=== PATIENT | female | born 1945 | race Caucasian/White ===

== ENCOUNTER 2017-02-03 22:34 | Inpatient (IN) | payer OTHER, MEDICARE ==
[~2017-02-03] VITALS: Ht 154.9 cm; Wt 110.2 kg
[~2017-02-03 22:34] MED LIST: 1-ME1LIQ PO; ASPI81 PO; ATOR40TA49 PO; QUIN40TA10 PO
[2017-02-03 22:40] VITALS: BP 156/83; PULSE 77; RESP 18; TEMP 98.2; O2SAT 96
[2017-02-03] MEDS ORDERED: CARV6.252 PO (23:18)
[2017-02-03] MEDS ORDERED: MULT1TAB41 PO (23:25)
[2017-02-03] MEDS ORDERED: AMLO5TAB2 PO (23:25)
[2017-02-03] MEDS ORDERED: OMEGCAP PO (23:25)
[2017-02-03] MEDS ORDERED: ASPI-183 PO (23:25)
[2017-02-03] MEDS ORDERED: ATOR40TA16 PO (23:25)
[2017-02-03] MEDS ORDERED: QUIN5TAB6 PO (23:25)
[2017-02-03] MEDS ORDERED: CALC600C3 PO (23:25)
[2017-02-03] MEDS ORDERED: MAGN250T11 PO (23:27)
[2017-02-03] MEDS ORDERED: CYAN1TAB24 PO (23:27)
[2017-02-03] MEDS ORDERED: D 50CAP2 PO (23:27)
--- NOTE | 2017-02-03 23:28 | PD ---
HPI Chief Complaint: Fall Time Seen by Provider: 23:26 Travel History International Travel<30 days: No Contact w/Intl Traveler<30days: No Traveled to known affect area: No History of Present Illness HPI The patient is a 71-year-old right-hand dominant female that fell with left wrist extended at 9:30 PM tonight. She complains of pain in the left wrist along with swelling in the left wrist. She denies any other injury. She states she fractured her same wrist years ago. PFSH Past Medical History Atrial Fibrillation: Yes Cardiac Catheterization: Yes (2009) Cardiovascular Problems: Yes (pacemaker) High Cholesterol: Yes Diminished Hearing: No Hypertension: Yes Immunizations Current: Yes Tetanus Vaccination: Never Vaccinated Influenza Vaccination: No ?: Not Menopausal: Yes Past Surgical History Hysterectomy: Yes Tonsillectomy: Yes Other Surgery: Yes (PACEMAKER) Social History Alcohol Use: No Tobacco Use: No Substance Use: No Allergies-Medications (Allergen,Severity, Reaction): Coded Allergies: No Known Allergies (Verified Allergy, Unknown, 02/04/17) Reported Meds & Prescriptions Reported Meds & Active Scripts Active Reported Magnesium Oxide 250 Mg Tab 250 Mg PO DAILY D3 Maximum Strength (Cholecalciferol) 5,000 Unit Cap 1,000 Units PO DAILY B12 (Cyanocobalamin) 1,000 Mcg Tab 1 Tab PO DAILY Martha-3 Fish Oil/Vitamin (Fish Oil-Cholecalciferol) 1,000-1,000 Mg Cap 1 Cap PO DAILY Sentry Senior (Multiple Vitamins W/ Minerals) 500 Mcg-300 Mcg-250 Mcg Tab 1 Tab PO DAILY Calcium 600 + Vit D 400 Softgl (Calcium Carbonate/Vitamin D3) 600 Mg-400 Capsule 1,200 Mg PO DAILY Aspirin 325 Mg Tab 325 Mg PO DAILY Quinapril (Quinapril HCl) 5 Mg Tab 40 Mg PO DAILY Atorvastatin (Atorvastatin Calcium) 40 Mg Tab 40 Mg PO HS Amlodipine (Amlodipine Besylate) 5 Mg Tab 5 Mg PO DAILY Carvedilol 6.25 Mg Tab 6.25 Mg PO BID Review of Systems Except as stated in HPI: all other systems reviewed are Neg Physical Exam Narrative GENERAL: The patient is alert, oriented 3 in moderate apparent distress with her left wrist discomfort. Her vital signs show blood pressure 156/83 but are otherwise normal. SKIN: Focused skin assessment warm/dry. HEAD: Atraumatic. Normocephalic. EYES: Pupils equal and round. No scleral icterus. No injection or drainage. ENT: No nasal bleeding or discharge. Mucous membranes pink and moist. NECK: Trachea midline. No JVD. CARDIOVASCULAR: Regular rate and rhythm. No murmur appreciated. RESPIRATORY: No accessory muscle use. Clear to auscultation. Breath sounds equal bilaterally. GASTROINTESTINAL: Abdomen soft, non-tender, nondistended. Hepatic and splenic margins not palpable. MUSCULOSKELETAL:. No clubbing. No cyanosis. There is swelling and slight radial deformity of the left wrist. Good capillary refill and pinprick is present. She moves all her fingers normally. NEUROLOGICAL: Awake and alert. No obvious cranial nerve deficits. Motor grossly within normal limits. Normal speech. PSYCHIATRIC: Appropriate mood and affect; insight and judgment normal. Data Data Last Documented VS Vital Signs Date Time Temp Pulse Resp B/P (MAP) Pulse Ox O2 Delivery O2 Flow Rate FiO2 02/03/17 23:02 16 96 Room Air 02/03/17 22:40 98.2 77 156/83 (107) Orders Orders Wrist, Complete ([place]) (02/03/17 23:28) Splint Or Brace Apply/Monitor (02/04/17 00:26) Complete Blood Count With Diff (02/04/17 00:28) Basic Metabolic Panel (Bmp) (02/04/17 00:28) Prothrombin Time / Inr (Pt) (02/04/17 00:28) Act Partial Throm Time (Ptt) (02/04/17 00:28) Urinalysis - C+S If Indicated (02/04/17 00:28) Chest, Pa & Lat (02/04/17 00:28) Admit To Inpatient (02/04/17 ) Vital Signs (Adult) Q4H (02/04/17 00:26) Activity Oob With Assistance (02/04/17 00:26) Bedside Glucose SALENA.CSUGAR (02/04/17 00:26) Diet Npo (02/04/17 Breakfast) Sodium Chlor 0.45% 1000 Ml Inj (1/2 Ns 1 (02/04/17 00:26) Sodium Chloride 0.9% Flush (Ns Flush) (02/04/17 00:30) Sodium Chloride 0.9% Flush (Ns Flush) (02/04/17 09:00) Acetaminophen (Tylenol) (02/04/17 00:30) Ondansetron Inj (Zofran Inj) (02/04/17 00:30) Basic Metabolic Panel (Bmp) (02/04/17 06:00) Complete Blood Count With Diff (02/04/17 06:00) Scd Bilateral/Knee High SALENA.BID (02/04/17 00:26) Naloxone Inj (Narcan Inj) (02/04/17 00:30) Docusate Sodium-Senna (Lilia-Colace) (02/04/17 09:00) Magnesium Hydroxide Liq (Milk Of Magnesi (02/04/17 00:30) Sennosides (Senokot) (02/04/17 00:30) Bisacodyl Supp (Dulcolax Supp) (02/04/17 00:30) Lactulose Liq (Lactulose Liq) (02/04/17 00:30) Inpatient Certification (02/04/17 ) Morphine Inj (Morphine Inj) (02/04/17 00:30) Coag Profile (02/04/17 06:00) Morphine Inj (Morphine Inj) (02/04/17 00:30) Ondansetron Inj (Zofran Inj) (02/04/17 00:30) Sodium Chlor 0.9% 1000 Ml Inj (Ns 1000 M (02/04/17 00:29) Electrocardiogram (02/04/17 00:29) Admit Order (Ed Use Only) (02/04/17 00:31) MDM Medical Decision Making Medical Screen Exam Complete: Yes Emergency Medical Condition: Yes Medical Record Reviewed: Yes Interpretation(s) X-rays show a comminuted fracture of the distal radius with an extension into the joint. Differential Diagnosis Fracture wrist, right wrist sprain, contusion wrist Narrative Course The patient has a comminuted fracture of the distal radius. The patient will be admitted to the [facility] service with consult to Dr. Lange in the morning. I discussed the patient with Dr. Kan. Physician Communication Physician Communication I discussed the patient with Dr. Kan. He told me to admit the patient to the [facility] service, transfer the patient to [facility] and consult Dr. Lange in the morning. The patient will be admitted to Dr. Roman of the [facility] service. I discussed the patient with Dr. Roman. Diagnosis Primary Impression: Fracture of left wrist Marcial Brown MD Feb 03, 2017 23:28
--- NOTE | 2017-02-04 00:06 | RADRPT ---
EXAM DATE/TIME: 02/03/2017 23:37 [facility] COMPARISON: No previous studies available for comparison. INDICATIONS : Left wrist pain after fall. MEDICAL HISTORY : Prior fracture to left wrist. SURGICAL HISTORY : None. ENCOUNTER: Initial ACUITY: 1 day PAIN SCORE: 8/10 LOCATION: Left wrist. FINDINGS: Acute, severely comminuted and impacted fracture seen of the distal left radius. Fracture has about 5 mm of dorsal displacement and mild dorsal angulation deformity. There is focal oblique coronal fract ure extending into the articular surface but without significant step-off or incongruity noted. There is a minimally displaced fracture of the base of the ulnar styloid. The bones appear intact. Mild radiocarpal osteoarthritis noted. There is moderate osteoarthritis of t he triscaphe and first carpometacarpal joints. CONCLUSION: 1. Comminuted, impacted intra-articular fracture of the distal left radius. 2. Minimally displaced ulnar styloid fracture. 3. Radial sided osteoarthritis of the carpus. Carpal bones are intact. Jamar Saleh MD on February 04, 2017 at 0:02 Board Certified Radiologist. This report was verified electronically.
[2017-02-04] MEDS ORDERED: SODIUM CHLOR 0.45% 1000 ML INJ 1,000 ML IV SCH (00:26)
[2017-02-04] MEDS ORDERED: SODIUM CHLOR 0.9% 1000 ML INJ 1,000 ML IV SCH (00:29)
[2017-02-04 00:30] VITALS: BP 148/83; PULSE 77; RESP 18; O2SAT 97
[2017-02-04] MEDS ORDERED: NALOXONE HCL 0.4 MG/ML AMP IV PUSH PRN (00:30)
[2017-02-04] MEDS ORDERED: BISACODYL 10 MG SUPP RECTAL PRN (00:30)
[2017-02-04] MEDS ORDERED: ONDANSETRON HCL 4 MG/2 ML VIAL IVP PRN (00:30)
[2017-02-04] MEDS ORDERED: MORPHINE SULFATE 4 MG/ML INJ IV PUSH ONE (00:30)
[2017-02-04] MEDS ORDERED: ONDANSETRON HCL 4 MG/2 ML VIAL IVP ONE (00:30)
[2017-02-04] MEDS ORDERED: ACETAMINOPHEN 325 MG TAB PO PRN (00:30)
[2017-02-04] MEDS ORDERED: MORPHINE SULFATE 2 MG/ML INJ IV PUSH PRN (00:30)
[2017-02-04] MEDS ORDERED: MAGNESIUM HYDROXIDE SUSP 30 ML CUP PO PRN (00:30)
[2017-02-04] MEDS ORDERED: SODIUM CHLORIDE 0.9% FLUSH 10 ML FLUSH IV FLUSH PRN (00:30)
[2017-02-04] MEDS ORDERED: SENNOSIDES 8.6 MG TAB PO PRN (00:30)
[2017-02-04] MEDS ORDERED: LACTULOSE SYRUP 20 GM/30 ML CUP PO PRN (00:30)
--- NOTE | 2017-02-04 01:33 | RADRPT ---
EXAM DATE/TIME: 02/04/2017 00:55 [facility] COMPARISON: No previous studies available for comparison. INDICATIONS : Chest pain after fall. MEDICAL HISTORY : None. SURGICAL HISTORY : Pacemaker. ENCOUNTER: Initial ACUITY: 1 day PAIN SCORE: 6/10 LOCATION: Bilateral chest FINDINGS: Mild, diffuse interstitial opacities are seen, probably mostly chronic. A slightly more conspicuous a carleen of focal consolidation is seen in the right midlung and early or mild acute pneumonia possible. N o pleural effusion. No pneumothorax. Heart size within normal limits. Thoracic aorta is tortuous. There is a cardiac pacer. CONCLUSION: 1. Early or mild right mid lung pneumonia suspected in the proper clinical setting. 2. Mild, diffuse and most likely chronic interstitial opacities of both lungs. 3. Normal heart size. Cardiac pacer present. Jamar Saleh MD on February 04, 2017 at 1:30 Board Certified Radiologist. This report was verified electronically.
[2017-02-04 02:48] LABS: AUTOMATED NEUTROPHIL # 6.6 TH/MM3 (1.8-7.7); BASOPHIL % 0.2 % (0.0-2.0); EOSINOPHIL # 0.1 TH/MM3 (0-0.4); EOSINOPHIL % 1.5 % (0.0-4.0); HEMATOCRIT 41.3 % (35.0-46.0); HEMO FLAGS DIFF FINAL; LYMPHOCYTE # 2.1 TH/MM3 (1.0-4.8); MEAN CELL VOLUME 90.6 FL (80.0-100.0); MEAN CORPUSCULAR HEMOGLOBIN 28.5 PG (27.0-34.0); MEAN CORPUSCULAR HGB CONC 31.5 % (32.0-36.0); MONO % 5.8 % (0.0-8.0); NEUT % 70.5 % (16.0-70.0); PLATELET COUNT 226 TH/MM3 (150-450); RED BLOOD COUNT 4.57 MIL/MM3 (4.00-5.30); RED CELL DISTRIBUTION WIDTH 12.7 % (11.6-17.2); WHITE BLOOD COUNT 9.3 TH/MM3 (4.0-11.0)
[2017-02-04 02:59] LABS: BICARBONATE 25.3 MEQ/L (21.0-32.0)
[2017-02-04 03:00] VITALS: BP 142/80; PULSE 70; RESP 18; O2SAT 97
[2017-02-04 03:00] LABS: PROTHROMBIN TIME - PATIENT 10.7 SEC (9.8-11.6)
[2017-02-04 03:01] LABS: POTASSIUM 4.8 MEQ/L (3.5-5.1)
[2017-02-04 04:35] VITALS: BP 144/82; PULSE 70; RESP 18; O2SAT 97
[2017-02-04] MEDS ORDERED: SODIUM CHLORID 0.9% 500 ML IV PRN (05:30)
[2017-02-04] MEDS ORDERED: CHLORHEXIDINE GLUCONATE 2 % 1 PACK (2 CLOTHS) TOPICAL PRN (05:30)
[2017-02-04] MEDS ORDERED: POVIDONE IODINE 5% (ANTISEPSIS KIT) 4 APPLICATIONS EACH NARE PRN (05:30)
[2017-02-04] MEDS ORDERED: LACTATED RINGER'S 1000 ML IV PRN (05:30)
[2017-02-04] MEDS ORDERED: METOPROLOL TARTRATE 25 MG TAB PO PRN (05:30)
[2017-02-04 05:36] VITALS: BP 114/43; PULSE 60; RESP 17; TEMP 97.2; O2SAT 96
[2017-02-04] MEDS ORDERED: HYDR-3288 PO (06:54)
--- NOTE | 2017-02-04 06:56 | PD.ORT.PN ---
Subjective Subjective Remarks Inez was at home when she tripped over her own shoe and landed on hard tile floor. She had significant pain and deformity to left wrist. She went to emergency room for x-rays and was diagnosed with a left distal radius fracture. Also complains of left rib pain. No other associated injuries or complaints Objective Vitals Vital Signs Date Time Temp Pulse Resp B/P (MAP) Pulse Ox O2 Delivery O2 Flow Rate FiO2 02/04/17 04:36 70 18 97 02/04/17 04:35 70 18 144/82 (102) 97 Room Air 02/04/17 03:00 70 18 142/80 (100) 97 Room Air 02/04/17 00:30 77 18 148/83 (104) 97 Room Air 02/03/17 23:02 16 96 Room Air 02/03/17 22:40 98.2 77 18 156/83 (107) 96 I/O 02/03/17 02/03/17 02/03/17 02/04/17 02/04/17 02/04/17 07:00 15:00 23:00 07:00 15:00 23:00 Intake Total 1000 ml Balance 1000 ml Intake IV Total 1000 ml Result Diagram: 02/04/17 0235 02/04/17 0235 Other Results Laboratory Tests Test 02/04/17 02:35 Prothromb Time International Ratio 1.0 RATIO Prothrombin Time 10.7 SEC (9.8-11.6) Imaging Last 24 hours Impressions Chest X-Ray 02/04/17 0028 Signed Impressions: Service Date/Time: Saturday, February 04, 2017 00:55 - CONCLUSION: 1. Early or mild right mid lung pneumonia suspected in the proper clinical setting. 2. Mild, diffuse and most likely chronic interstitial opacities of both lungs. 3. Normal heart size. Cardiac pacer present. Jamar Saleh MD Wrist X-Ray 02/03/17 [id number] Signed Impressions: Service Date/Time: Friday, February 03, 2017 23:37 - CONCLUSION: 1. Comminuted, impacted intra-articular fracture of the distal left radius. 2. Minimally displaced ulnar styloid fracture. 3. Radial sided osteoarthritis of the carpus. Carpal bones are intact. Jamar Saleh MD Objective Remarks Left upper extremity. No pain with shoulder range of motion. She is in a sugar tong splint is well-padded. Distally she has intact sensation of her radius ulnar median nerve distractions with good capillary refills. She can extend her fingers and she can flex her fingers. Right upper extremity: Full range of motion neurovascularly intact Assessment & Plan Assessment and Plan Left interarticular distal radius fracture. Fracture alignment is borderline for surgical versus nonsurgical treatment. We will obtain stat x-rays post splinting to evaluate alignment. She will continue to remain nothing by mouth at this time. If the fracture continues to maintain position or is slightly worsened we will proceed with surgery this morning. Consents are on chart - we will call and confirm surgical versus conservative measures after x-rays were performed Baldemar Stringer Jr. Feb 04, 2017 06:56
[2017-02-04] MEDS ORDERED: ACETAMINOPHEN/HYDROcodone 325 MG/7.5 MG TAB PO PRN ×2 (07:00→10:15)
[2017-02-04 07:37] VITALS: BP 104/41; PULSE 60; RESP 18; TEMP 97.1; O2SAT 95
--- NOTE | 2017-02-04 07:58 | MB ---
cc: SANTO ESQUIVEL DATE OF CONSULTATION 02/03/2017 REASON FOR CONSULTATION Left distal radius fracture. HISTORY Inez is a 71-year-old female who had a fall last night at approximately 9:30. She landed on her left side. She landed on an outstretched left arm. She had immediate left wrist pain. She presented to [facility] emergency room where x-rays revealed a mildly displaced left distal radius fracture. She is currently awake and alert on the orthopedic floor. Her only complaint is her left wrist. She denies any dizziness, syncope or loss of consciousness. She is left-hand dominant. Pain is worse with movement and is improved with rest. She is placed in a splint in the emergency department. PAST MEDICAL HISTORY ILLNESSES Atrial fibrillation. SURGERIES 1. Hysterectomy 2. Tonsillectomy 3. Pacemaker placement ALLERGIES None MEDICATIONS Please see EMR for this inpatient medications. This includes: 1. Magnesium 2. Vitamin D 3. Vitamin B12 4. Calcium 5. Aspirin 6. Quinapril 7. Atorvastatin 8. Amlodipine 9. Carvedilol SOCIAL HISTORY The patient denies alcohol, tobacco or drug use. She lives independently in [place]. REVIEW OF SYSTEMS The patient denies headache, visual changes, neck pain, chest pain, shortness of breath, abdominal pain, nausea, vomiting or recent weight loss, numbness or tingling of extremities. She complains of left wrist pain. Pain is worse with movement. Pain is improved with rest. PHYSICAL EXAMINATION The patient is a pleasant 71-year female. She is in no acute distress. She is awake and alert. She is a mildly overweight. VITAL SIGNS: Temperature 97.2, pulse 60, respiration 17, blood pressure 114/41, O2 sat 96% on room air. HEAD: The patient is normocephalic. EYES: Pupils are equal. NECK: Soft and nontender. Trachea is midline. ABDOMEN: Soft, nontender, nondistended. EXTREMITIES: Examination of the left arm reveals no tenderness around her shoulder or elbow. She is diffusely tender around the wrist. She has mild swelling present. She has good cap refill in her fingers. Sensation is intact in all fingers. Examination of right arm reveals no pain with shoulder, elbow or wrist motion. She has intact sensation in all fingers. She has good cap refill in all fingers. Skin is intact. Radial pulse is palpable. Examination of the bilateral lower extremities reveals no pain with hip, knee or ankle motion. Skin is intact to both feet. Dorsalis pedis pulse is palpable. Skin is intact. X-RAYS X-rays of the left wrist were reviewed. X-rays reveal a mildly displaced, mildly angulated left distal radius fracture. There is mild shortening. The articular surface has approximately 10 degrees of dorsal tilt. IMPRESSION 1. Mildly displaced left distal radius fracture. 2. Atrial fibrillation PLAN Treatment option were discussed with the patient. At this point, options were discussed including surgical and nonsurgical options. If fracture stays in its current alignment, she would likely have relatively good function. If the fracture displaces further, she will likely benefit from surgical intervention. At this point, I will reorder x-rays this morning to see if the alignment has change in all. If there has been any displacement for further angulation of the fracture, then I would recommend surgical open reduction internal fixation. I will follow up with the patient once x-rays have been completed. All questions were answered. The patient is in agreement with this plan. A mid-level provider in my office, nurse practitioner or PA, may see this patient on a follow-up basis and continue to implement the objective of this plan including: Starting or adjusting medications, injections of muscle, tendon, bursa or joints, cast application, orthotic or brace application, physical therapy, further radiographic studies including x-ray, MRI, CT, ultrasounds or bone scan, vascular studies, neurologic studies, or other specialist consultations, and proceeding with surgical management as appropriate. MD PROMISE Recinos/MARIA ELENA /7:23 AM /7:52 AM
--- NOTE | 2017-02-04 08:03 | RADRPT ---
EXAM DATE/TIME: 02/04/2017 07:05 [facility] COMPARISON: WRIST LEFT COMPLETE ([id number]), February 03, 2017, 23:37. INDICATIONS : Evaluate fracture. Post reduction. MEDICAL HISTORY : None. SURGICAL HISTORY : Pacemaker. ENCOUNTER: Subsequent ACUITY: 1 day PAIN SCORE: 5/10 LOCATION: Left writst. FINDINGS: Interval casting and reduction of comminuted impacted intra-articular distal left radial fracture. Th ere is continued impaction with quarter shaft length dorsal displacement of the distal fragment altho ugh no significant cortical step-off is noted along the articular surface. Ulnar styloid fracture is less apparent. No additional new bony fractures are identified. CONCLUSION: 1. Status post reduction and casting of comminuted impacted intra-articular distal left radial fractu re, as above. Huseyin Finn MD on February 04, 2017 at 7:58 Board Certified Radiologist. This report was verified electronically.
[2017-02-04] MEDS ORDERED: ACETAMINOPHEN 1000 MG/100 ML 100 ML IV ONE (08:43)
[2017-02-04] MEDS ORDERED: VANCOMYCIN HCL 1000 MG VIAL ONE (08:48)
[2017-02-04] MEDS ORDERED: BUPIVACAINE/EPINEPHRINE 0.25% PF 10 ML VIAL ONE (08:48)
[2017-02-04] MEDS ORDERED: GENTAMICIN SULFATE 80 MG/2 ML VIAL ONE (08:48)
[2017-02-04] MEDS ORDERED: SODIUM CHLOR 0.9% 250 ML INJ 250 ML ONE (08:48)
[2017-02-04] MEDS ORDERED: DOCUSATE SODIUM 50 MG/SENNA 8.6 MG TAB PO SCH (09:00)
[2017-02-04] MEDS ORDERED: SODIUM CHLORIDE 0.9% FLUSH 10 ML FLUSH IV FLUSH SCH (09:00)
[2017-02-04] MEDS ORDERED: ceFAZolin 2 GM PREMIX 50 ML ONE (09:02)
--- NOTE | 2017-02-04 09:04 | EKG ---
Date Performed: 02/04/2017 Time Performed: 00:53:39 PTAGE: 71 years EKG: ELECTRONIC VENTRICULAR PACEMAKER ABNORMAL RHYTHM ECG INTERPRETATION BASED ON A DEFAULT AGE OF 40 YEARS PREVIOUS TRACING : 05/07/2010 04.55 DOCTOR: Tejas Cisneros Interpretating Date/Time 02/04/2017 09:04:19
--- NOTE | 2017-02-04 10:08 | PD.OP ---
cc: Salvador Newman MD Operative Report Date of Surgery: Feb 04, 2017 Preoperative Diagnosis: Left distal radius intra-articular fracture Postoperative Diagnosis: Procedure: Open reduction internal fixation left distal radius Anesthesia: Gen. Surgeon: Salvador Newman [employer] Instructor(s): CHIRAG Hernandez PA-C The surgical procedure was assisted by my physician surgical services assistant. My P.A. presence was necessary throughout this case for the manipulation and positioning of the surgical extremity. My P.A. was assisting me throughout the duration of this procedure. The skill set of a physician surgical services assistant was medically necessary to complete this procedure. During the surgical case the operating room surgical technician was working at the back table and the physician surgical services assistant was directly assisting me. Operation and Findings: Patient was seen and evaluated preoperatively and found to have a displaced intra-articular left distal radius fracture. Informed consent was obtained after detailed discussion of risk and benefits including bleeding, infection, injury to arteries, nerves, and blood vessels, weakness and numbness of hand, and tendon rupture. Informed consent was obtained. Patient received IV antibiotics prior to incision. Timeout procedure was performed. Operative extremity was prepped with alcohol followed by Hibiclens and draped usual sterile fashion. A standard volar approach to the distal radius was utilized. A 3 inch incision was made over the FCR tendon. Tendon sheath was opened. Pronator quadratus was elevated up. The fracture site was now visualized. The fracture did have intra-articular extension. Traction was applied. The articular surface was reduced. Fracture fragments were manipulated to achieve excellent reduction. K wires were used to hold provisional fixation. Fluoroscopy confirmed appropriate alignment of fracture. An ITS variable angle distal radius plate was selected. Plate was provisionally fixed to bone with K wires. 2.7 and 2.4 cortical screws were used to compress plate to bone. Fluoroscopy confirmed appropriate alignment of fracture with well-placed hardware. Multiple 2.4 locking screws were now placed distally. Screws were predrilled and measured for appropriate length. 2 additional screws were placed into the shaft. K wires were removed. Final fluoroscopy revealed excellent of fracture with well- placed hardware. The wound was thoroughly irrigated with sterile saline. Subcutaneous tissue was closed with 3-0 Vicryl and skin was closed with 3-0 nylon. Sterile dressings were applied with Xeroform, 4 x 4, soft roll, and a well padded volar splint. Patient was awakened and transferred to recovery room in stable condition Salvador Newman MD Feb 04, 2017 10:08
[2017-02-04] MEDS ORDERED: MORPHINE SULFATE 4 MG/ML INJ IV PUSH PRN (10:15)
[2017-02-04] MEDS ORDERED: *ONDANSETRON 4 MG VIAL PERIprocedural Use ONLY ONE (10:43)
--- NOTE | 2017-02-04 11:10 | HHI.HP ---
[facility] Lisa Willis Do, MD Admission Diagnosis comminuted fracture distal radius Diagnoses: Chief Complaint: Fall and left arm pain Travel History International Travel<30 Days: No Contact w/Intl Traveler <30 Da: No Traveled to Known Affected Are: No History of Present Illness This is a 71-year-old female with past medical history of hypertension and hyperlipidemia who fell last night. Patient stated that she actually tripped over a shoe and fell on her left outstretched arm. She denies any symptoms of chest pain, lightheadedness/dizziness, shortness of breathing during this episode. In the emergency department she was found to have a mildly displaced left distal radius fracture. Patient seen in the PACU after surgery. She had a open reduction internal fixation left distal radius. All other review of system reviewed and negative. Past Family Social History Past Medical History Hypertension Hyperlipidemia. Past Surgical History 1. Hysterectomy 2. Tonsillectomy 3. Pacemaker placement Reported Medications [place] (Hydrocodone-Acetaminophen) 7.5-325 mg Tab 1 Tab PO Q3HR PRN Magnesium Oxide 250 Mg Tab 250 Mg PO DAILY D3 Maximum Strength (Cholecalciferol) 5,000 Unit Cap 1,000 Units PO DAILY B12 (Cyanocobalamin) 1,000 Mcg Tab 1 Tab PO DAILY [place]-3 Fish Oil/Vitamin (Fish Oil-Cholecalciferol) 1,000-1,000 Mg Cap 1 Cap PO DAILY [place] [employer] (Multiple Vitamins W/ Minerals) 500 Mcg-300 Mcg-250 Mcg Tab 1 Tab PO DAILY Calcium 600 + Vit D 400 Softgl (Calcium Carbonate/Vitamin D3) 600 Mg-400 Capsule 1,200 Mg PO DAILY Aspirin 325 Mg Tab 325 Mg PO DAILY Quinapril (Quinapril HCl) 5 Mg Tab 40 Mg PO DAILY Atorvastatin (Atorvastatin Calcium) 40 Mg Tab 40 Mg PO HS Amlodipine (Amlodipine Besylate) 5 Mg Tab 5 Mg PO DAILY Carvedilol 6.25 Mg Tab 6.25 Mg PO BID Allergies: Coded Allergies: No Known Allergies (Verified Allergy, Unknown, 02/04/17) Active Ordered Medications Current Medications Sodium Chloride 1,000 ml @ 75 mls/hr [id number] IV ; Start 02/04/17 at 00:26 Sodium Chloride (NS Flush) 2 ml UNSCH PRN IV FLUSH FLUSH AFTER USING IV ACCESS ; Start 02/04/17 at 00:30 Sodium Chloride (NS Flush) 2 ml BID IV FLUSH ; Start 02/04/17 at 09:00 Acetaminophen (Tylenol) 650 mg Q4H PRN PO TEMP > 100.4; Start 02/04/17 at 00: 30 Ondansetron HCl (Zofran Inj) 4 mg Q6H PRN IVP NAUSEA OR VOMITING; Start at 00:30 Naloxone HCl (Narcan Inj) 0.4 mg UNSCH PRN IV PUSH SEE LABEL COMMENTS; Start 02/04/17 at 00:30 Senna/Docusate Sodium (Lilia-Colace) 1 tab BID PO ; Start 02/04/17 at 09:00 Magnesium Hydroxide (Milk Of Magnesia Liq) 30 ml Q12H PRN PO Mild constipation ; Start 02/04/17 at 00:30 Sennosides (Senokot) 17.2 mg Q12H PRN PO Moderate constipation; Start at 00:30 Bisacodyl (Dulcolax Supp) 10 mg DAILY PRN RECTAL SEVERE CONSITIPATION; Start 02/04/17 at 00:30 Lactulose (Lactulose Liq) 30 ml DAILY PRN PO SEVERE CONSITIPATION; Start 02/04 at 00:30 Morphine Sulfate (Morphine Inj) 2 mg Q4H PRN IV PUSH pain 6-10; Start at 00:30 Morphine Sulfate (Morphine Inj) 4 mg ONCE ONCE IV PUSH Last administered on 02:48; Start 02/04/17 at 00:30; Stop 02/04/17 at 00:33; Status DC Ondansetron HCl (Zofran Inj) 4 mg ONCE ONCE IVP Last administered on 02:48; Start 02/04/17 at 00:30; Stop 02/04/17 at 00:33; Status DC Sodium Chloride 1,000 ml @ 1,000 mls/hr Q1H IV Last administered on 02:49; Start 02/04/17 at 00:29; Stop 02/04/17 at 01:28; Status DC Lactated Ringer's 1,000 ml @ 30 mls/hr Q24H PRN IV SEE LABEL COMMENTS; Start 02/04/17 at 05:30; Stop 02/07/17 at 05:29 Sodium Chloride 500 ml @ 30 mls/hr [id number] PRN IV SEE LABEL COMMENTS; Start at 05:30; Stop 02/07/17 at 05:29 Metoprolol Tartrate (Lopressor) 25 mg [employer] PRN PO SEE LABEL COMMENTS Last administered on 02/04/17 08:10; Start 02/04/17 at 05:30; Stop 02/07/17 at 05 :29 Povidone Iodine (Betadine 5% Antisepsis Kit) 1 applic [employer] PRN EACH NARE SEE LABEL COMMENTS; Start 02/04/17 at 05:30; Stop 02/07/17 at 05:29 Chlorhexidine Gluconate (Chlorhexidine 2% Cloth) 3 pack [employer] PRN TOPICAL SEE LABEL COMMENTS; Start 02/04/17 at 05:30; Stop 02/07/17 at 05:29 Acetaminophen/ Hydrocodone Bitart ([place] 7.5-325 Mg) 1 tab Q3H PRN PO pain 3< 10; Start 02/04/17 at 07:00 Acetaminophen 100 ml @ As Directed STK-MED ONCE IV ; Start 02/04/17 at 08:43; Stop 02/04/17 at 08:44; Status DC Bupivacaine HCl/ Epinephrine Bitart (Sensorcaine-Epinephrine Pf 0.25% Inj) 20 ml STK-MED ONCE .ROUTE Last administered on 02/04/17 09:30; Start 02/04/17 at 08:48; Stop 02/04/17 at 08:49; Status DC Vancomycin HCl (Vancomycin Inj) 1,000 mg STK-MED ONCE .ROUTE Last administered on 02/04/17 09:23; Start 02/04/17 at 08:48; Stop 02/04/17 at 08:49; Status DC Gentamicin Sulfate (Gentamicin Inj) 240 mg STK-MED ONCE .ROUTE Last administered on 02/04/17 09:30; Start 02/04/17 at 08:48; Stop 02/04/17 at 08 :49; Status DC Sodium Chloride 250 ml @ As Directed STK-MED ONCE .ROUTE Last administered on 02/04/17 09:23; Start 02/04/17 at 08:48; Stop 02/04/17 at 08:49; Status DC Cefazolin Sodium/ Dextrose 50 ml @ As Directed STK-MED ONCE .ROUTE Last administered on 02/04/17 09:24; Start 02/04/17 at 09:02; Stop 02/04/17 at 09 :03; Status DC Acetaminophen/ Hydrocodone Bitart ([place] 7.5-325 Mg) 1 tab Q3H PRN PO PAIN 3< 10; Start 02/04/17 at 10:15; Status UNV Morphine Sulfate (Morphine Inj) 4 mg Q3H PRN IV PUSH break thru pain; Start at 10:15; Status UNV Ondansetron HCl (*ZOFRAN INJ PERIprocedural ONLY) 4 mg STK-MED ONCE .ROUTE ; Start 02/04/17 at 10:43; Stop 02/04/17 at 10:44; Status DC Morphine Sulfate (*morphine INJ PERIprocedure ONLY) 8 mg STK-MED ONCE .ROUTE ; Start 02/04/17 at 11:12; Stop 02/04/17 at 11:13; Status DC Family History Review past family history. Social History The patient denies alcohol, tobacco or drug use. She lives independently in [place]. Physical Exam Vital Signs Vital Signs Date Time Temp Pulse Resp B/P (MAP) Pulse Ox O2 Delivery O2 Flow Rate FiO2 02/04/17 07:37 97.1 60 18 104/41 (62) 95 02/04/17 05:36 97.2 60 17 114/43 (66) 96 02/04/17 04:36 70 18 97 02/04/17 04:35 70 18 144/82 (102) 97 Room Air 02/04/17 03:00 70 18 142/80 (100) 97 Room Air 02/04/17 00:30 77 18 148/83 (104) 97 Room Air 02/03/17 23:02 16 96 Room Air 02/03/17 22:40 98.2 77 18 156/83 (107) 96 Physical Exam GENERAL: This is a well-nourished, well-developed patient, in no apparent distress. SKIN: No rashes, ecchymoses or lesions. Cool and dry. HEAD: Atraumatic. Normocephalic. No temporal or scalp tenderness. EYES: Pupils equal round and reactive. Extraocular motions intact. No scleral icterus. No injection or drainage. ENT: Nose without bleeding, purulent drainage or septal hematoma. Throat without erythema, tonsillar hypertrophy or exudate. Uvula midline. Airway patent. NECK: Trachea midline. No JVD or lymphadenopathy. Supple, nontender, no meningeal signs. CARDIOVASCULAR: Regular rate and rhythm without murmurs, gallops, or rubs. RESPIRATORY: Clear to auscultation. Breath sounds equal bilaterally. No wheezes , rales, or rhonchi. GASTROINTESTINAL: Abdomen soft, non-tender, nondistended. No hepato-splenomegaly , or palpable masses. No guarding. MUSCULOSKELETAL: Left arm and a sling. Sensation of the hand intact. NEUROLOGICAL: Awake and alert. Cranial nerves II through XII intact. Motor and sensory grossly within normal limits. Five out of 5 muscle strength in all muscle groups. Normal speech. Laboratory Laboratory Tests Test 02/04/17 02:35 White Blood Count 9.3 Red Blood Count 4.57 Hemoglobin 13.0 Hematocrit 41.3 Mean Corpuscular Volume 90.6 Mean Corpuscular Hemoglobin 28.5 Mean Corpuscular Hemoglobin Concent 31.5 Red Cell Distribution Width 12.7 Platelet Count 226 Mean Platelet Volume 7.5 Neutrophils (%) (Auto) 70.5 Lymphocytes (%) (Auto) 22.0 Monocytes (%) (Auto) 5.8 Eosinophils (%) (Auto) 1.5 Basophils (%) (Auto) 0.2 Neutrophils # (Auto) 6.6 Lymphocytes # (Auto) 2.1 Monocytes # (Auto) 0.5 Eosinophils # (Auto) 0.1 Basophils # (Auto) 0.0 CBC Comment DIFF FINAL Differential Comment Prothrombin Time 10.7 Prothromb Time International Ratio 1.0 Activated Partial Thromboplast Time 25.0 Blood Urea Nitrogen 17 Creatinine 0.73 Random Glucose 104 Calcium Level 8.7 Sodium Level 135 Potassium Level 4.8 Chloride Level 103 Carbon Dioxide Level 25.3 Anion Gap 7 Estimat Glomerular Filtration Rate 79 Result Diagram: 02/04/17 0235 02/04/17 0235 Imaging Last Impressions Chest X-Ray 02/04/17 0028 Signed Impressions: Service Date/Time: Saturday, February 04, 2017 00:55 - CONCLUSION: 1. Early or mild right mid lung pneumonia suspected in the proper clinical setting. 2. Mild, diffuse and most likely chronic interstitial opacities of both lungs. 3. Normal heart size. Cardiac pacer present. Jamar Saleh MD Wrist X-Ray 02/04/17 0000 Signed Impressions: Service Date/Time: Saturday, February 04, 2017 07:05 - CONCLUSION: 1. Status post reduction and casting of comminuted impacted intra-articular distal left radial fracture, as above. MD Manuelito Flowers VTE Risk Assessment Caprini VTE Risk Assessment: Mod/High Risk (score >= 2) Caprini Risk Assessment Model Point Value = 1 Point Value = 2 Point Value = 3 Point Value = 5 Age 41-60 Minor surgery BMI > 25 kg/m2 Swollen legs Varicose veins or History of unexplained or recurrent spontaneous Oral contraceptives or hormone replacement Sepsis (< 1 month) Serious lung disease, including pneumonia (< 1 month) Abnormal pulmonary function Acute myocardial infarction Congestive heart failure (< 1 month) History of inflammatory bowel disease Medical patient at bed rest Age 61-74 Arthroscopic surgery Major open surgery (> 45 min) Laparoscopic surgery (> 45 min) Malignancy Confined to bed (> 72 hours) Immobilizing plaster cast Central venous access Age >= 75 History of VTE Family history of VTE Factor V Leiden Prothrombin [id number] Lupus anticoagulant Anticardiolipin antibodies Elevated serum homocysteine Heparin-induced thrombocytopenia Other congenital or acquired thrombophilia Stroke (< 1 month) Elective arthroplasty Hip, pelvis, or leg fracture Acute spinal cord injury (< 1 month) Prophylaxis Regimen Total Risk Factor Score Risk Level Prophylaxis Regimen 0-1 Low Early ambulation 2 Moderate Order ONE of the following: *Sequential Compression Device (SCD) *Heparin 5000 units SQ BID 3-4 Higher Order ONE of the following medications: *Heparin 5000 units SQ TID *Enoxaparin/Lovenox 40 mg SQ daily (WT < 150 kg, CrCl > 30 mL/min) *Enoxaparin/Lovenox 30 mg SQ daily (WT < 150 kg, CrCl > 10-29 mL/min) *Enoxaparin/Lovenox 30 mg SQ BID (WT < 150 kg, CrCl > 30 mL/min) AND/OR *Sequential Compression Device (SCD) 5 or more Highest Order ONE of the following medications: *Heparin 5000 units SQ TID (Preferred with Epidurals) *Enoxaparin/Lovenox 40 mg SQ daily (WT < 150 kg, CrCl > 30 mL/min) *Enoxaparin/Lovenox 30 mg SQ daily (WT < 150 kg, CrCl > 10-29 mL/min) *Enoxaparin/Lovenox 30 mg SQ BID (WT < 150 kg, CrCl > 30 mL/min) AND *Sequential Compression Device (SCD) Assessment and Plan Assessment and Plan This is a 71-year-old female past medical history hypertension and hyperlipidemia who fell on an outstretched left arm Mildly displaced left distal radius fracture -Patient had open reduction internal fixation left distal radius. -Per orthopedic surgeon patient can possibly be discharged home later today if pain is controlled. Hypertension/hyperlipidemia -Resume home medication DVT prophylaxis -Encourage ambulation. Discussed Condition With If later on today pain is controlled patient can be discharged to home. Physician Certification 2 Midnight Certification Type: Admission for Inpatient Services Order for Inpatient Services The services are ordered in accordance with Medicare regulations or non- Medicare payer requirements, as applicable. In the case of services not specified as inpatient-only, they are appropriately provided as inpatient services in accordance with the 2-midnight benchmark. Estimated LOS (days): 1 1 days is the estimated time the patient will need to remain in the hospital, assuming treatment plan goals are met and no additional complications. Post-Hospital Plan: Home Martha Hardy MD Feb 04, 2017 11:10
[2017-02-04] MEDS ORDERED: *morphine SULFATE 8 MG/ML PERIprocedure ONLY ONE (11:12)
--- NOTE | 2017-02-04 11:26 | RADRPT ---
EXAM DATE/TIME: 02/04/2017 09:57 [facility] COMPARISON: No previous studies available for comparison. INDICATIONS : Open reduction internal fixation left wrist. MEDICAL HISTORY : None. SURGICAL HISTORY : None. ENCOUNTER: Initial ACUITY: 1 day PAIN SCORE: Non-responsive. LOCATION: Left Wrist FINDINGS: Two view examination of the left wrist demonstrates status post open reduction and internal fixation of the comminuted distal radial fracture with hardware in good position. The joint spaces are maint ained. Bony mineralization is normal. CONCLUSION: Status post ORIF of a distal comminuted radial fracture. Tejas Bueno MD on February 04, 2017 at 11:24 Board Certified Radiologist. This report was verified electronically.
--- NOTE | 2017-02-04 11:42 | HHI.DCPOC ---
Discharge Care Plan Diagnosis: (1) Fracture of left wrist Goals to Promote Your Health * To prevent worsening of your condition and complications * To maintain your health at the optimal level Directions to Meet Your Goals Take your medications as prescribed Follow your dietary instruction Follow activity as directed Keep your appointments as scheduled Take your immunizations and boosters as scheduled If your symptoms worsen call your PCP, if no PCP go to Urgent Care Center or Emergency Room Smoking is Dangerous to Your Health. Avoid second hand smoke Call the 24-hour hour crisis hotline for domestic abuse at Martha Hardy MD Feb 04, 2017 11:42
[2017-02-04 12:00] VITALS: BP 143/70; PULSE 67; RESP 16; TEMP 97.8; O2SAT 98
[2017-02-04] MEDS ORDERED: ROCURONIUM INJ 50 MG/5 ML SYRINGE IV PUSH ONE (12:00)
[2017-02-04] MEDS ORDERED: LIDOCAINE HCL 1% PF 5 ML SYRINGE OTHER ONE (12:00)
[2017-02-04] MEDS ORDERED: NEOSTIGMINE 3 MG/3 ML SYR IV ONE (12:00)
[2017-02-04] MEDS ORDERED: PROPOFOL 200 MG/20 ML AMP IV ONE (12:00)
[2017-02-04] MEDS ORDERED: ONDANSETRON HCL 4 MG/2 ML VIAL IV ONE (12:00)
[2017-02-04] MEDS ORDERED: GLYCOPYRROLATE 1 MG/5 ML SYRINGE IV PUSH ONE (12:00)
[2017-02-04] MEDS ORDERED: DO NOT ADM ANY ANTICOAGULANT DRUGS PRN (13:00)
== END 2017-02-04 19:37 | disposition home or self-care (01) | DRG 511 ==
LOC: PHED 22:34 → PHEDA 02-04 00:34 → N06A 02-04 04:56
PROVIDERS: ADMIT Family Medicine; ATTEND Family Medicine
PROC: 0PSJ04Z Reposition Left Radius with Internal Fixation Device, Open Approach (ICD-10-PCS; principal; 2017-02-04 09:05)
DX: S52.572A Other intraarticular fracture of lower end of left radius, initial encounter for closed fracture (principal); Z68.42 Body mass index [BMI] 45.0-49.9, adult; E66.3 Overweight; W01.0XXA Fall on same level from slipping, tripping and stumbling without subsequent striking against object, initial encounter; I48.91 Unspecified atrial fibrillation; I10 Essential (primary) hypertension; E78.5 Hyperlipidemia, unspecified; Z95.0 Presence of cardiac pacemaker
CPT/HCPCS: 71020; 73100; 73110; 76000; 80048; 85025; 85610; 85730; 93005; C1713; J0131; J0690; J1580; J2270; J2405; J2710; J3010; J3370; J7030; J7050